=== PATIENT | male | born 1945 | race African-American/Black ===

== ENCOUNTER 2018-01-11 11:24 | Inpatient (IN) ==
[2018-01-11 14:27] LABS: INR 2.3; Partial Thromboplastin Time 39.2 SECS (0-40)
[2018-01-11 14:29] LABS: PT Patient Result 23.9 SECS
[2018-01-11 14:31] LABS: Basophils % 0.1 % (0.0-0.8); Hematocrit 44.3 VOL% (42.0-52.0); Hemoglobin 13.8 GM/DL (14.0-18.0); Immature Granulocytes % 1.8 %; Immature Granulocytes Absolute 0.36 #; Lymphocytes # 0.5 10*3/uL (1.4-4.0); Lymphocytes % 2.3 % (21.2-54.2); Mean Corpuscular HGB Conc 31.2 GM/DL (32-36); Mean Corpuscular Hemoglobin 26 PG (27-34); Mean Corpuscular Volume 84.1 FL (87-102); Mean Platelet Volume 10.4 FL (9.6-12.0); Monocytes # 0.9 10*3/uL (0.11-0.8); Monocytes % 4.5 % (1.7-12.7); NRBC # 0.12 10*3/uL; Neutrophils # 18.3 10*3/uL (1.4-7.4); Neutrophils % 91.3 % (38.7-73.9); Platelet Count 259 T/CUMM (130-400); Red Blood Count 5.27 MC/CUMM (3.8-5.5); Red Cell Distribution Width 24.3 % (9.3-17.3)
[2018-01-11 14:32] LABS: Albumin 2.7 G/DL (3.4-5.0); Bilirubin,Total 7.9 MG/DL (0.2-1.0); Calcium 9.7 MG/DL (8.5-10.1); Osmolality,Calculated 285.8 MOS/KG (273-304); Potassium 4.6 MMOL/L (3.5-5.1); Total Protein 7.9 G/DL (6.4-8.3)
[2018-01-11 15:08] LABS: Band Neutrophils 1 % (0-10); Lymphocytes 4 % (20-55); Platelet Estimate Normal; Segmented Neutrophils 88 % (50-85); Total Cells Counted 100
[2018-01-11 19:19] LABS: Lactic Acid 13.2 MMOL/L (0.4-2.0)
[2018-01-11 22:20] LABS: Amorphous Crystals,Urine Occasional /HPF (Few); Apearance,Urine Slightly Hazy (Clear); Bacteria,Urine Occasional /HPF (Few); Bilirubin,Urine Small mg/dL (Negative); Blood, Urine Small mg/dL (Negative); Glucose,Urine (UA) Negative (Negative); Hyaline Casts,Urine 45 /LPF (0-3); Ketones,Urine Negative (Negative); Mucus,Urine Occasional /LPF (Occasional); Nitrite,Urine Negative (Negative); Protein,Urine 100 MG/DL; RBC,Urine 15 /HPF (0-4); Squamous Epithelial Cell,Urine Occasional /HPF (0-10); Urine Color Amber (Yellow); Urine Specific Gravity 1.014 (1.001-1.035); WBC,Urine 1 /HPF (0-6)
[2018-01-12 04:13] LABS: ABG Base Excess -14.2 MMOL/L (-2.5-2.5); ABG HCO3 13.8 MMOL/L (20-26); ABG Oxygen Saturation 95.3 % (95-100); ABG PCO2 21.7 MM HG (35-48); ABG PH 7.301 (7.35-7.45); ABG TCO2 9.3 MMOL/L (23-27); Allen Test Positive; Pt O2 Delivery Device Room Air
[2018-01-12 10:27] LABS: Basophils % 0.1 % (0.0-0.8); Hematocrit 48.7 VOL% (42.0-52.0); Hemoglobin 14.6 GM/DL (14.0-18.0); Immature Granulocytes % 1.3 %; Immature Granulocytes Absolute 0.24 #; Lymphocytes # 0.5 10*3/uL (1.4-4.0); Lymphocytes % 2.5 % (21.2-54.2); Mean Corpuscular Hemoglobin 25 PG (27-34); Mean Corpuscular Volume 84.7 FL (87-102); Mean Platelet Volume 10.8 FL (9.6-12.0); Monocytes # 0.8 10*3/uL (0.11-0.8); Monocytes % 3.9 % (1.7-12.7); NRBC # 0.08 10*3/uL; Neutrophils # 17.6 10*3/uL (1.4-7.4); Neutrophils % 92.2 % (38.7-73.9); Platelet Count 250 T/CUMM (130-400); Red Blood Count 5.75 MC/CUMM (3.8-5.5); Red Cell Distribution Width 25.4 % (9.3-17.3); White Blood Count 19.1 T/CUMM (4-12)
[2018-01-12 10:39] LABS: Lactic Acid 13.6 MMOL/L (0.4-2.0)
[2018-01-12 10:40] LABS: Calcium 9.7 MG/DL (8.5-10.1); Osmolality,Calculated 287.7 MOS/KG (273-304); Potassium 4.9 MMOL/L (3.5-5.1)
[2018-01-12 10:58] LABS: Albumin 2.7 G/DL (3.4-5.0); Bilirubin,Direct 6.04 MG/DL (0.0-0.20); Bilirubin,Indirect 2.1 MG/DL (0.0-1.0); Bilirubin,Total 8.1 MG/DL (0.2-1.0); Total Protein 7.9 G/DL (6.4-8.3)
[2018-01-12 11:32] LABS: Hepatitis A Ab IgM Quant 0.43 Index; Hepatitis A Ab IgM Result Negative (Negative); Hepatitis B Core IgM Quant < 0.05 Index; Hepatitis B Core IgM Result Negative (Negative); Hepatitis B Surface Ag Quant < 0.10 Index; Hepatitis B Surface Ag Result Negative (Negative); Hepatitis C Virus Ab Quant 0.15 Index; Hepatitis C Virus Ab Result Negative (Negative)
[2018-01-12 12:26] LABS: Anisocytosis 1+; Band Neutrophils 14 % (0-10); Lymphocytes 5 % (20-55); Macrocytosis 2+; Nucleated Red Blood Cells 3 (0-5); Platelet Estimate Normal; Poikilocytosis 1+; Segmented Neutrophils 81 % (50-85); Smudge Cells Few; Target Cells Few; Total Cells Counted 100
[2018-01-12 15:00] LABS: PT Patient Result 30.3 SECS; Partial Thromboplastin Time 47.7 SECS (0-40)
[2018-01-13 04:39] LABS: INR 2.9
[2018-01-13 04:47] LABS: PT Patient Result 29.4 SECS; Partial Thromboplastin Time 46.9 SECS (0-40)
[2018-01-13 04:59] LABS: Calcium 8.3 MG/DL (8.5-10.1); Osmolality,Calculated 300.7 MOS/KG (273-304); Potassium 4.3 MMOL/L (3.5-5.1)
[2018-01-13 05:51] LABS: Albumin 2.1 G/DL (3.4-5.0); Bilirubin,Direct 4.61 MG/DL (0.0-0.20); Bilirubin,Total 5.6 MG/DL (0.2-1.0); Total Protein 6.5 G/DL (6.4-8.3)
[2018-01-13 07:01] LABS: Basophils # 0.1 10*3/uL (0.0-0.2); Basophils % 0.4 % (0.0-0.8); Hematocrit 37.6 VOL% (42.0-52.0); Hemoglobin 11.7 GM/DL (14.0-18.0); Immature Granulocytes Absolute 0.18 #; Lymphocytes # 0.6 10*3/uL (1.4-4.0); Lymphocytes % 3.1 % (21.2-54.2); Mean Corpuscular HGB Conc 31.1 GM/DL (32-36); Mean Corpuscular Hemoglobin 25 PG (27-34); Mean Corpuscular Volume 80.9 FL (87-102); Monocytes # 1.8 10*3/uL (0.11-0.8); Monocytes % 9.4 % (1.7-12.7); Neutrophils # 16.3 10*3/uL (1.4-7.4); Neutrophils % 86.1 % (38.7-73.9); Platelet Count 199 T/CUMM (130-400); Red Blood Count 4.65 MC/CUMM (3.8-5.5); Red Cell Distribution Width 24.7 % (9.3-17.3); White Blood Count 18.9 T/CUMM (4-12)
[2018-01-13 07:35] LABS: Band Neutrophils 4 % (0-10); Lymphocytes 8 % (20-55); Platelet Estimate Normal; Segmented Neutrophils 74 % (50-85); Total Cells Counted 100
[2018-01-13 07:36] LABS: Anisocytosis 1+
[2018-01-13 07:37] LABS: Hypochromasia Slight
[2018-01-13 07:38] LABS: Macrocytosis 1+; Polychromasia Slight
[2018-01-13 17:12] LABS: INR 2.1; PT Patient Result 21.8 SECS; Partial Thromboplastin Time 44.2 SECS (0-40)
[2018-01-14 05:08] LABS: Basophils % 0.1 % (0.0-0.8); Eosinophils # 0.1 10*3/uL (0.0-0.87); Eosinophils % 0.3 % (0.00-10.9); Hematocrit 33.5 VOL% (42.0-52.0); Immature Granulocytes % 0.6 %; Immature Granulocytes Absolute 0.08 #; Lymphocytes # 0.3 10*3/uL (1.4-4.0); Lymphocytes % 2.4 % (21.2-54.2); Mean Corpuscular HGB Conc 32.8 GM/DL (32-36); Mean Corpuscular Hemoglobin 26 PG (27-34); Mean Corpuscular Volume 78.1 FL (87-102); Monocytes # 0.6 10*3/uL (0.11-0.8); NRBC # 0.02 10*3/uL; Neutrophils # 13.3 10*3/uL (1.4-7.4); Neutrophils % 92.6 % (38.7-73.9); Platelet Count 136 T/CUMM (130-400); Red Blood Count 4.29 MC/CUMM (3.8-5.5); Red Cell Distribution Width 23.9 % (9.3-17.3); White Blood Count 14.4 T/CUMM (4-12)
[2018-01-14 05:25] LABS: Calcium 8.2 MG/DL (8.5-10.1); Osmolality,Calculated 293.8 MOS/KG (273-304); Potassium 3.8 MMOL/L (3.5-5.1)
[2018-01-14 05:28] LABS: Albumin 2.6 G/DL (3.4-5.0); Bilirubin,Direct 4.88 MG/DL (0.0-0.20); Bilirubin,Indirect 1.6 MG/DL (0.0-1.0); Bilirubin,Total 6.5 MG/DL (0.2-1.0); Total Protein 6.4 G/DL (6.4-8.3)
[2018-01-14 05:31] LABS: PT Patient Result 20.6 SECS
[2018-01-14 05:33] LABS: Partial Thromboplastin Time 50.2 SECS (0-40)
[2018-01-14 05:59] LABS: Band Neutrophils 1 % (0-10); Eosinophils 3 % (0-10); Hypochromasia 1+; Lymphocytes 3 % (20-55); Ovalocytes Slight; Segmented Neutrophils 89 % (50-85); Total Cells Counted 100
[2018-01-14 06:00] LABS: Macrocytosis Slight; Platelet Estimate Normal
[2018-01-14 17:22] LABS: INR 1.7; PT Patient Result 18.1 SECS
[2018-01-14 17:30] LABS: Partial Thromboplastin Time 44.1 SECS (0-40)
[2018-01-15 03:31] LABS: Basophils % 0.1 % (0.0-0.8); Eosinophils # 0.1 10*3/uL (0.0-0.87); Eosinophils % 0.4 % (0.00-10.9); Hematocrit 34.1 VOL% (42.0-52.0); Hemoglobin 11.1 GM/DL (14.0-18.0); Immature Granulocytes % 0.6 %; Immature Granulocytes Absolute 0.07 #; Lymphocytes # 0.4 10*3/uL (1.4-4.0); Lymphocytes % 2.9 % (21.2-54.2); Mean Corpuscular HGB Conc 32.6 GM/DL (32-36); Mean Corpuscular Hemoglobin 26 PG (27-34); Mean Corpuscular Volume 79.3 FL (87-102); Mean Platelet Volume 10.3 FL (9.6-12.0); Monocytes # 0.5 10*3/uL (0.11-0.8); NRBC # 0.04 10*3/uL; Neutrophils # 11.5 10*3/uL (1.4-7.4); Platelet Count 102 T/CUMM (130-400); Red Cell Distribution Width 24.5 % (9.3-17.3); White Blood Count 12.5 T/CUMM (4-12)
[2018-01-15 03:40] LABS: Fibrinogen Quant Value 180 MG% (200-400); INR 1.7; PT Patient Result 17.4 SECS
[2018-01-15 03:41] LABS: Partial Thromboplastin Time 48.7 SECS (0-40)
[2018-01-15 03:45] LABS: Albumin 2.4 G/DL (3.4-5.0); Bilirubin,Total 7.4 MG/DL (0.2-1.0); Osmolality,Calculated 296.4 MOS/KG (273-304); Potassium 3.4 MMOL/L (3.5-5.1); Total Protein 6.5 G/DL (6.4-8.3)
[2018-01-15 03:54] LABS: Lactic Acid 2.6 MMOL/L (0.4-2.0)
[2018-01-15 04:32] LABS: Band Neutrophils 4 % (0-10); Burr Cells 1+; Lymphocytes 7 % (20-55); Segmented Neutrophils 89 % (50-85); Total Cells Counted 100
[2018-01-15 04:33] LABS: Microcytosis 1+; Platelet Estimate Decreased
[2018-01-15 10:49] LABS: INR 1.5; PT Patient Result 16.1 SECS
[2018-01-15 12:24] LABS: Neutrophils,Peritoneal Fluid 28 %; RBC,Peritoneal Fluid < 1 T/CUMM
[2018-01-15 19:41] LABS: Fibrinogen Quant Value 213 MG% (200-400); INR 1.5; PT Patient Result 15.6 SECS
[2018-01-16 08:04] LABS: Basophils % 0.1 % (0.0-0.8); Eosinophils # 0.1 10*3/uL (0.0-0.87); Eosinophils % 0.4 % (0.00-10.9); Hematocrit 34.9 VOL% (42.0-52.0); Hemoglobin 11.2 GM/DL (14.0-18.0); Immature Granulocytes % 0.7 %; Immature Granulocytes Absolute 0.09 #; Lymphocytes # 0.3 10*3/uL (1.4-4.0); Lymphocytes % 2.2 % (21.2-54.2); Mean Corpuscular HGB Conc 32.1 GM/DL (32-36); Mean Corpuscular Hemoglobin 26 PG (27-34); Mean Corpuscular Volume 80.6 FL (87-102); Monocytes # 0.8 10*3/uL (0.11-0.8); NRBC # 0.06 10*3/uL; Neutrophils # 12.2 10*3/uL (1.4-7.4); Neutrophils % 90.6 % (38.7-73.9); Red Blood Count 4.33 MC/CUMM (3.8-5.5); Red Cell Distribution Width 25.2 % (9.3-17.3); White Blood Count 13.5 T/CUMM (4-12)
[2018-01-16 08:08] LABS: Platelet Count 94 T/CUMM (130-400)
[2018-01-16 08:25] LABS: Eosinophils 2 % (0-10); Hypochromasia 1+; Lymphocytes 3 % (20-55); Segmented Neutrophils 92 % (50-85); Total Cells Counted 100
[2018-01-16 08:26] LABS: INR 2.3
[2018-01-16 08:26] LABS: Anisocytosis 1+; Burr Cells Few; Microcytosis 1+; Ovalocytes Slight; Target Cells Few
[2018-01-16 08:27] LABS: Acanthocytes Few; Platelet Estimate Decreased; Poikilocytosis 1+
[2018-01-16 08:31] LABS: Albumin 2.1 G/DL (3.4-5.0); Bilirubin,Total 7.5 MG/DL (0.2-1.0); Calcium 7.8 MG/DL (8.5-10.1); Osmolality,Calculated 289.5 MOS/KG (273-304); Potassium 3.3 MMOL/L (3.5-5.1)
[2018-01-16 08:31] LABS: PT Patient Result 23.4 SECS; Partial Thromboplastin Time 72.7 SECS (0-40)
[2018-01-16 16:34] LABS: Fibrinogen Quant Value 249 MG% (200-400); INR 1.5
[2018-01-16 17:03] LABS: Partial Thromboplastin Time 52.6 SECS (0-40)
[2018-01-16 17:39] LABS: HIV Antigen/Antibody Result Nonreactive (Nonreactive)
[2018-01-17 06:03] LABS: Basophils % 0.1 % (0.0-0.8); Eosinophils % 0.3 % (0.00-10.9); Hematocrit 34.3 VOL% (42.0-52.0); Hemoglobin 11.4 GM/DL (14.0-18.0); Immature Granulocytes % 0.9 %; Lymphocytes # 0.3 10*3/uL (1.4-4.0); Lymphocytes % 2.8 % (21.2-54.2); Mean Corpuscular HGB Conc 33.2 GM/DL (32-36); Mean Corpuscular Hemoglobin 26 PG (27-34); Mean Corpuscular Volume 76.9 FL (87-102); Mean Platelet Volume 10.8 FL (9.6-12.0); Monocytes # 0.6 10*3/uL (0.11-0.8); Monocytes % 4.9 % (1.7-12.7); NRBC # 0.04 10*3/uL; Neutrophils # 10.7 10*3/uL (1.4-7.4); Platelet Count 114 T/CUMM (130-400); Red Blood Count 4.46 MC/CUMM (3.8-5.5); Red Cell Distribution Width 25.6 % (9.3-17.3); White Blood Count 11.7 T/CUMM (4-12)
[2018-01-17 06:13] LABS: INR 1.5; PT Patient Result 15.4 SECS
[2018-01-17 06:21] LABS: Partial Thromboplastin Time 53.9 SECS (0-40)
[2018-01-17 06:27] LABS: Band Neutrophils 3 % (0-10); Hypochromasia 1+; Lymphocytes 1 % (20-55); Segmented Neutrophils 93 % (50-85); Total Cells Counted 100
[2018-01-17 06:28] LABS: Anisocytosis 1+; Burr Cells Few; Microcytosis 1+; Polychromasia Slight
[2018-01-17 06:29] LABS: Platelet Estimate Adequate; Target Cells Slight
[2018-01-17 06:31] LABS: Albumin 2.3 G/DL (3.4-5.0); Calcium 8.4 MG/DL (8.5-10.1); Osmolality,Calculated 288.4 MOS/KG (273-304); Potassium 3.3 MMOL/L (3.5-5.1); Total Protein 6.5 G/DL (6.4-8.3)
[2018-01-17 11:25] LABS: INR 1.4; PT Patient Result 14.9 SECS
[2018-01-18 04:36] LABS: INR 1.3; INR 1.4; PT Patient Result 14.3 SECS
[2018-01-18 04:36] LABS: Basophils % 0.1 % (0.0-0.8); Eosinophils # 0.1 10*3/uL (0.0-0.87); Eosinophils % 0.5 % (0.00-10.9); Hematocrit 30.9 VOL% (42.0-52.0); Hemoglobin 10.4 GM/DL (14.0-18.0); Immature Granulocytes % 0.6 %; Immature Granulocytes Absolute 0.08 #; Lymphocytes # 0.4 10*3/uL (1.4-4.0); Lymphocytes % 3.2 % (21.2-54.2); Mean Corpuscular HGB Conc 33.7 GM/DL (32-36); Mean Corpuscular Hemoglobin 26 PG (27-34); Mean Corpuscular Volume 76.7 FL (87-102); Monocytes # 0.6 10*3/uL (0.11-0.8); Monocytes % 4.9 % (1.7-12.7); NRBC # 0.03 10*3/uL; Neutrophils # 11.2 10*3/uL (1.4-7.4); Neutrophils % 90.7 % (38.7-73.9); Platelet Count 116 T/CUMM (130-400); Red Blood Count 4.03 MC/CUMM (3.8-5.5); Red Cell Distribution Width 26.1 % (9.3-17.3); White Blood Count 12.3 T/CUMM (4-12)
[2018-01-18 04:46] LABS: Partial Thromboplastin Time 45.6 SECS (0-40)
[2018-01-18 04:56] LABS: Albumin 2.3 G/DL (3.4-5.0); Bilirubin,Total 7.3 MG/DL (0.2-1.0); Calcium 8.6 MG/DL (8.5-10.1); Osmolality,Calculated 289.3 MOS/KG (273-304); Potassium 3.6 MMOL/L (3.5-5.1); Total Protein 6.2 G/DL (6.4-8.3)
[2018-01-18 05:42] LABS: Band Neutrophils 1 % (0-10); Eosinophils 2 % (0-10); Hypochromasia 1+; Lymphocytes 4 % (20-55); Microcytosis Slight; Platelet Estimate Decreased; Segmented Neutrophils 88 % (50-85); Total Cells Counted 100
[2018-01-18 11:47] VITALS: BP 121/74
== END 2018-01-18 16:30 | DRG 871 ==
LOC: N.ED 11:24 → N.EDINP 17:11 → SUATTDRO 17:11 → N.ICU 17:51 → N.TELEN 01-15 17:29
PROVIDERS: ADMIT Internal Medicine; ATTEND Internal Medicine
PROC: IRTHORA (2018-01-18 09:28)